=== PATIENT | male | born 1990 | race Caucasian/White ===

== ENCOUNTER 2023-11-17 12:42 | Emergency (ER) | payer MEDICARE, OTHER ==
[~2023-11-17] VITALS: Ht 177.8 cm; Wt 81.0 kg
[2023-11-17 12:49] VITALS: O2SAT 99
[2023-11-17 13:00] VITALS: BP 118/50; PULSE 72; RESP 18; TEMP 98.1; O2SAT 99
[2023-11-17 14:50] LABS: CHLORIDE 107 mEq/L (98-107); POTASSIUM 3.8 mEq/L (3.5-5.1); SODIUM 140 mEq/L (136-145)
[2023-11-17 14:51] LABS: CALCIUM 9.6 mg/dL (8.7-10.4); CARBON DIOXIDE 26 mEq/L (21-32)
[2023-11-17 14:52] LABS: HEMATOCRIT 43.5 % (42.0-52.0); HEMOGLOBIN 14.7 g/dL (14.0-18.0); MEAN CORPUSCULAR HEMOGLOBIN 29.4 pg (28.0-32.0); MEAN CORPUSCULAR HGB CONC 33.9 g/dL (31.0-37.0); MEAN CORPUSCULAR VOLUME 86.7 fL (80.0-94.0); PLATELET 262 x1000/uL (130-400); RED BLOOD CELL COUNT 5.02 mill/uL (4.7-6.1); RED CELL DISTRIBUTION WIDTH 12.9 % (11.6-14.6); WHITE BLOOD COUNT 9.1 x1000/uL (4.5-11.0)
[2023-11-17 14:56] LABS: CREATININE 1.2 mg/dL (0.6-1.3); GLUCOSE 99 mg/dL (70-105); UREA NITROGEN BLOOD 11 mg/dL (9-23)
[2023-11-17 15:11] LABS: TROPONIN I HIGH SENSITIVITY < 4 ng/L (3.0-53)
[2023-11-17] MEDS: KETOROLAC 30MG/ML VIAL IM NR (17:27)
== END 2023-11-17 17:43 | disposition home or self-care (01) ==
LOC: ER 12:42
DX: R07.9 Chest pain, unspecified (principal)
CPT/HCPCS: 36415; 71045; 80048; 84484; 85027; 85379; 93005; 99285